=== PATIENT | female | born 1985 | race Caucasian/White ===

== ENCOUNTER 2017-09-15 22:55 | Inpatient (IN) | payer BC ==
[2017-09-15 23:51] LABS: BASOPHIL 0.7 % (0-2.0); EOSINOPHIL 0.6 % (0-4.5); MCH 30.3 pg (25.7-33.7); MCHC 33.9 g/dl (32.0-36.0); MEAN CELL VOLUME 89.3 fl (80-96); MEAN PLT VOLUME 10.5 fl (7.5-11.1); NEUTROPHILS 79.7 % (42.8-82.8); PLATELET COUNT 211 K/MM3 (134-434); WHITE BLOOD COUNT 14.4 K/mm3 (4.0-10.0)
[2017-09-15 23:55] VITALS: BMI 27.8
[2017-09-16 00:13] LABS: INR 0.93 (0.82-1.09); PROTHROMBIN TIME (PATIENT) 10.5 SEC (9.98-11.88)
[2017-09-16 00:15] LABS: ACTIVATED PTT 26.1 SECONDS (26.9-34.4)
[2017-09-16 00:19] LABS: ANION GAP 12 (8-16); CALCIUM 9.5 mg/dL (8.5-10.1); CO2 22 mmol/L (21-32); CREATININE 0.8 mg/dL (0.55-1.02); GLUCOSE,RANDOM 116 mg/dL (74-106)
--- NOTE | 2017-09-16 00:25 | HP ---
Past Medical History - Admission Chief Complaint: labor History of Present Illness: 32 yo @ 39 5/7 wks by first trimester ultrasound, EDC 09/18/17 complicated by: 1. Transfer of care from Dr. Reyes 2. History of subchorionic hematoma, which resolved Patient presents with chief complaint of contractions, which started Friday night. She was checked in the office earlier this morning and was found to be 3- 4 cm, salina irregularly. The contractions increased in intensity and frequency and she presented to L&D where she was found to be 5 cm dilated. She endorses movement, denies leakage of fluid or vaginal bleeding. History Source: Patient Limitations to Obtaining History: No Limitations - Past Medical History Cardiovascular: No: HTN Pulmonary: No: Asthma Renal/: Yes: Renal Calculi (2002) ...: 1 ...Para: 0 ...Term: 0 ...: 0 ...Spon : 0 ...Induced : 0 ...Multiple Gestation: 0 ...LMP: 12/06/16 ... Weeks Gestation by Dates: 40.3 ...EDC by Dates: 09/12/17 ...EDC by Sono: 09/18/17 - Past Surgical History Hx Myomectomy: No Hx Transabdominal Cerclage: No Additional Surgical History: Tonsillectomy age 3 - Smoking History Smoking history: Former smoker Have you smoked in the past 12 months: No - Alcohol/Substance Use Hx Alcohol Use: No History of Substance Use: reports: None - Social History Usual Living Arrangement: Yes: With Spouse History of Recent Travel: No Home Medications - Allergies Allergies/Adverse Reactions: Allergies Allergy/AdvReac Type Severity Reaction Status Date / Time No Known Allergies Allergy Verified 09/15/17 23:44 - Home Medications Home Medications: Ambulatory Orders Vit/Iron Fumarate/FA [ Tablet] 1 tablet PO DAILY 09/15/17 Family Disease History - Family Disease History Family History: Denies Review of Systems - Review of Systems Constitutional: reports: No Symptoms Eyes: reports: No Symptoms Neck: reports: No Symptoms Cardiovascular: reports: No Symptoms Respiratory: reports: No Symptoms Gastrointestinal: reports: No Symptoms Genitourinary: reports: No Symptoms Musculoskeletal: reports: No Symptoms Neurological: reports: No Symptoms Endocrine: reports: No Symptoms Hematology/Lymphatic: reports: No Symptoms Physical Exam - Maternity Vital Signs: Vital Signs Temperature 98.0 F 09/15/17 23:20 Pulse Rate 67 09/15/17 23:20 Respiratory Rate 20 09/15/17 23:20 Blood Pressure 129/73 09/15/17 23:20 O2 Sat by Pulse Oximetry (%) Constitutional: Yes: Well Nourished, No Distress, Calm Cardiovascular: Yes: Regular Rate and Rhythm Lungs: Clear to auscultation - Abdominal Exam/OB Fundal Height: 40 Number of Fetuses: Single Contractions: Yes Regularity: Regular Intensity: Mod/Strong Monitor Mode: External Category: I Accelerations: Non-Uniform Decelerations: None - Vaginal Exam/OB Vaginal Bleediing: No Dilatation (cm): 5 Amniotic Membrane Status: Bulging - Physical Exam Psychiatric: Yes: Alert, Oriented - Labs Lab Results: CBC, BMP 09/15/17 23:40 Hemorrhage Risk Assessment - Risk Factors Medium Risk Factors: Yes: None High Risk Factors: Yes: None Risk Score: 1 Risk Level: Medium Risk Assessment/Plan 32 yo in active labor 1. Admit to L&D 2. Consents reviewed and signed 3. Admission labs collected and reviewed 4. GBS negative 5. Category I FHT 6. Will offer pain control at patient request 7. Will proceed with expectant management, anticipate vaginal delivery
[2017-09-16 00:37] LABS: HIV 1 & 2 AB NEGATIVE; HIV 1 AGp24 NEGATIVE
[2017-09-16] MEDS ORDERED: FENTANYL/BUPIVACAINE/NS/PF - PCEA - 50 ML DISP.SYRIN EP SCH (00:45)
--- NOTE | 2017-09-16 01:13 | PN ---
Ante-Partal Exam - Subjective Subjective: Reports mild improvement in pain Vital Signs: Vital Signs Temperature 98.0 F 09/15/17 23:20 Pulse Rate 67 09/15/17 23:20 Respiratory Rate 20 09/15/17 23:20 Blood Pressure 129/73 09/15/17 23:20 O2 Sat by Pulse Oximetry (%) Bleeding: No Headache: No Visual changes: No Right upper quadrant pain: No - Contractions Contractions: Yes Regularity: Regular Intensity: Mod/Strong Monitor Mode: External - Exam during Labor Heart Rate: 130 Variability: Moderate Category: II Monitor Accelerations: Present Monitor Decelerations: Variable Exam: Vaginal Dilatation (cm): 6 Effacement (%): 100 Amniotic Membrane Status: Ruptured Amniotic Fluid: Clear Presentation: Vertex Station: 0 - Intrapartum Hemorrhage Risk Medium Risk Factors: None High Risk Factors: None Risk Score: 0 Risk Level: Low Risk - Assessment/Plan Assessment/Plan: 32 yo active labor 1. AROM performed, clear fluid 2. GBS neg 3. Patient with minimal relief s/p epidural, will contact anethesia 4. Variable deceleration after AROM, now category I FHT, will monitor
--- NOTE | 2017-09-16 01:46 | PN ---
Ante-Partal Exam - Subjective Subjective: reports continued left sided pain Vital Signs: Vital Signs Temperature 99.0 F 09/16/17 01:00 Pulse Rate 69 09/16/17 01:05 Respiratory Rate 20 09/16/17 01:05 Blood Pressure 103/54 09/16/17 01:05 O2 Sat by Pulse Oximetry (%) 97 09/16/17 00:55 Bleeding: No Headache: No Visual changes: No Right upper quadrant pain: No - Contractions Contractions: Yes Regularity: Regular Intensity: Strong Monitor Mode: External - Exam during Labor Variability: Moderate Category: I Monitor Accelerations: Present Monitor Decelerations: None Exam: Vaginal Dilatation (cm): 8 Effacement (%): 100 Amniotic Membrane Status: Ruptured Station: +1 - Intrapartum Hemorrhage Risk Medium Risk Factors: None High Risk Factors: None Risk Score: 0 Risk Level: Low Risk - Assessment/Plan Assessment/Plan: 32 yo active labor 1. Good cervical change 2. Category I FHT 3. Inadequate pain relief s/p reinsertion of epidural, anesthesia at bedside 4. GBS negative 5. Will continue expectant management, anticipate vaginal delivery
--- NOTE | 2017-09-16 05:40 | PN ---
Delivery - Delivery Vaginal Delivery: No Problems Type of Anesthesia: Epidural Episiotomy/Laceration: 2nd degree EBL (cc): 300 Delivery, Single - Stages of Labor Date 1st Stage Initiatied: 09/15/17 Time 1st Stage Initiated: 20:00 Date 2nd Stage Initiated: 09/16/17 Time 2nd Stage Initiated: 03:10 Date of Delivery: 09/16/17 Time of Delivery: 05:14 Date Placenta Delivered: 09/16/17 Time Placenta Delivered: 05:30 Placenta: Yes: Spontaneous - Condition of Gender: Female Position: OA Total Hours ROM (Hrs/Mins): 4 hours 32 minutes - 5 Minutes Total Score: 9 1 Minute Total Score: 9 - Feeding Plan Initial Plan: Exclusive throughout hospitalization Remarks - Remarks Remarks: Patient progressed to fully dilated and at 0514 via delivered a viable female infant in direct OA position, APGARs 9,9. Weight and length unknown at this time. Head delivered spontaneously, nuchal cord noted and reduced. Compound R had noted, shoulders and body followed without difficulty. Infant with spontaneous cry and placed on mother's abdomen. Nose and mouth was bulb suctioned. Cord was clamped and cut. Perineum and vagina examined, a second degree vaginal laceration was noted and repaired in the usual fashion. Rectal exam revealed no sutures in rectum. Placenta was delivered spontaneously and intact. 20 units of pitocin in 1 L IVF was given. All counts correct x 2. Mother and infant stable in LDR. EBL 300cc.
[2017-09-16] MEDS ORDERED: IBUPROFEN 600 MG TABLET (FP) PO PRN (05:41)
[2017-09-16] MEDS ORDERED: BENZOCAINE 20% 57 GM BOTTLE TP PRN (05:41)
[2017-09-16] MEDS ORDERED: METHYLERGONOVINE MALEATE 0.2 MG/1 ML AMP IM PRN (05:41)
[2017-09-16] MEDS ORDERED: ACETAMINOPHEN 325 MG TABLET (FP) PO PRN (05:41)
[2017-09-16] MEDS ORDERED: oxyCODONE HCL 5 MG TABLET PO PRN (05:41)
[2017-09-16] MEDS ORDERED: WITCH HAZEL 50% (TUCKS) 40 PAD/JAR PAD TP PRN (05:41)
[2017-09-16] MEDS ORDERED: BENZOCAINE 28 GM HEMORRHOIDAL OINTMENT TP PRN (05:41)
[2017-09-16] MEDS ORDERED: BISACODYL 10 MG SUPP.RECT RC PRN (05:41)
[2017-09-16] MEDS ORDERED: OXYTOCIN 20 UNITS in 0.9% NS 20 UNIT/1,000 ML INFUS.BAG IV SCH (05:45)
[2017-09-16] MEDS ORDERED: TUBERCULIN PPD 5 TU/0.1ML SYRINGE (IN PATIENT USE ONLY) ID ONE (07:00)
[2017-09-17 08:50] LABS: BASOPHIL 0.7 % (0-2.0); EOSINOPHIL 1.4 % (0-4.5); MCH 29.9 pg (25.7-33.7); MCHC 32.8 g/dl (32.0-36.0); MEAN CELL VOLUME 90.9 fl (80-96); MEAN PLT VOLUME 9.8 fl (7.5-11.1); NEUTROPHILS 78.8 % (42.8-82.8); PLATELET COUNT 180 K/MM3 (134-434); RDW 14.6 % (11.6-15.6); WHITE BLOOD COUNT 15.8 K/mm3 (4.0-10.0)
--- NOTE | 2017-09-17 15:49 | DS ---
Physical Exam-INTERNAL COMMUNICATIONS WRITER Vital Signs: Vital Signs Temperature 98.6 F 09/17/17 08:48 Pulse Rate 65 09/17/17 08:48 Respiratory Rate 20 09/17/17 08:48 Blood Pressure 109/64 09/17/17 08:48 O2 Sat by Pulse Oximetry (%) 97 09/16/17 00:55 Constitutional: Yes: Well Nourished, No Distress, Calm Eyes: Yes: WNL, Conjunctiva Clear, EOM Intact HENT: Yes: WNL, Atraumatic, Normocephalic Neck: Yes: WNL, Supple, Trachea Midline Cardiovascular: Yes: WNL, Regular Rate and Rhythm Respiratory: Yes: WNL, Regular, CTA Bilaterally Gastrointestinal: Yes: WNL, Normal Bowel Sounds, Soft ...Rectal Exam: Yes: Deferred Renal/: Yes: WNL Internal Exam Deferred: Yes ....Post : Yes: Uterus firm, Uterus non-tender, Slight lochia rubra Breast(s): Yes: WNL Musculoskeletal: Yes: WNL Extremities: Yes: WNL Edema: Yes Edema: LLE: Trace, RLE: Trace Integumentary: Yes: WNL Neurological: Yes: WNL, Alert, Oriented ...Motor Strength: WNL Psychiatric: Yes: WNL, Alert, Oriented Labs: CBC, BMP 09/17/17 08:00 09/15/17 23:40 Delivery - Delivery Vaginal Delivery: No Problems Type of Anesthesia: Epidural Episiotomy/Laceration: 2nd degree EBL (cc): 300 Delivery, Single - Stages of Labor Date 1st Stage Initiatied: 09/15/17 Time 1st Stage Initiated: 20:00 Date 2nd Stage Initiated: 09/16/17 Time 2nd Stage Initiated: 03:10 Date of Delivery: 09/16/17 Time of Delivery: 05:14 Time Placenta Delivered: 05:30 Placenta: Yes: Spontaneous - 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 You may walk unlimited latisha of and climb stairs. You may resume driving the car when you feel safe and comfortable behind the wheel. No sexual activity as instructed. Wound care If you have a bandage, leave it on, and keep dry for 48-72 hours. After that time discard the outer bandage. If they are tapes on the skin under the out of bandage leave them in place. They will peel off in the next 7 to 10 days. Do Not Peel them off. You may shower the day after surgery. If there are tapes present on the skin, you may shower over them. Diet There are no dietary restrictions. Eat healthy, high-fiber foods. Drink 6 to 8 glasses of liquid each day. This will assist in keeping your bowels are regular. Pain management You may take Tylenol or acetaminophen or Ibuprofen (for example, Motrin, Advil etc.) from my pain prescription medication is ordered should be taken as prescribed for moderate to severe pain. Call MD for any of the following: Severe pain not relieved by medication Fever of 101 or higher Excessive bleeding or drainage on dressing Inability to urinate Follow-up in office in 4 wks Referrals: Amaris Hirsch MD [Staff Physician] - Disposition: HOME - Home Medications Comprehensive Discharge Medication List: Ambulatory Orders Vit/Iron Fumarate/FA [ Tablet] 1 tablet PO DAILY 09/15/17
[2017-09-17] MEDS ORDERED: SENNOSIDES/DOCUSATE COMBO (SENNA PLUS) TABLET (UD) PO PRN (22:00)
--- NOTE | 2017-09-18 00:52 | PN ---
Post Progress Note - Subjective Subjective: Patient without acute complaints. Reports tolerating oral intake without nausea or vomiting. Ambulating without dizziness. Denies fevers or chills. Pain well controlled with oral pain medication. without difficulty. Passing flatus. Post Day: 2 Type of Delivery: Vital Signs: Vital Signs Temperature 98.9 F 09/17/17 22:00 Pulse Rate 84 09/17/17 22:00 Respiratory Rate 20 09/17/17 22:00 Blood Pressure 121/72 09/17/17 22:00 O2 Sat by Pulse Oximetry (%) 97 09/16/17 00:55 Breast Exam: Yes: Engorged Uterus: Yes: Fundus Firm, Fundus below umbilicus Abdomen/GI: Yes: Abdomen soft, Passing flatus, Tolerating PO. No: Tender Lochia: Yes: Serosa Extremities: Yes: Calves non-tender, Edema (trace) Perineum: Yes: Laceration Activity: Ambulating - Labs Labs: CBC WBC 15.8 K/mm3 (4.0-10.0) H 09/17/17 08:00 RBC 3.56 M/mm3 (3.60-5.2) L 09/17/17 08:00 Hgb 10.6 GM/dL (10.7-15.3) L D 09/17/17 08:00 Hct 32.3 % (32.4-45.2) L 09/17/17 08:00 MCV 90.9 fl (80-96) 09/17/17 08:00 MCH 29.9 pg (25.7-33.7) 09/17/17 08:00 MCHC 32.8 g/dl (32.0-36.0) 09/17/17 08:00 RDW 14.6 % (11.6-15.6) 09/17/17 08:00 Plt Count 180 K/MM3 (134-434) 09/17/17 08:00 MPV 9.8 fl (7.5-11.1) 09/17/17 08:00 Neutrophils % 78.8 % (42.8-82.8) 09/17/17 08:00 Lymphocytes % 12.9 % (8-40) 09/17/17 08:00 Monocytes % 6.2 % (3.8-10.2) 09/17/17 08:00 Eosinophils % 1.4 % (0-4.5) D 09/17/17 08:00 Basophils % 0.7 % (0-2.0) 09/17/17 08:00 Assessment/Plan 32 yo PPD #2 s/p , afebrile, vital signs stable, doing well 1. Patient stable for discharge home today. 2. Patient encouraged to contact MD for: - Severe pain not controlled by oral pain medication - Fevers or chills - Nausea or vomiting, intolerance of oral intake 3. Patient to follow up in office in 4-6 weeks for visit
[2017-09-18 08:04] VITALS: BP 124/81; PULSE 68; TEMP 98.3
== END 2017-09-18 12:30 | disposition home or self-care (01) | DRG 775 ==
LOC: JDEL 22:55 → JLDR 23:20 → J3W 09-16 08:22
PROVIDERS: ADMIT Obstetrics & Gynecology; ATTEND Obstetrics & Gynecology
PROC: 10E0XZZ Delivery of Products of Conception, External Approach (ICD-10-PCS; principal; 2017-09-16)
PROC: 0KQM0ZZ Repair Perineum Muscle, Open Approach (ICD-10-PCS; 2017-09-16)
PROC: 0W8NXZZ Division of Female Perineum, External Approach (ICD-10-PCS; 2017-09-16)
DX: O70.1 Second degree perineal laceration during delivery (principal); Z3A.39 39 weeks gestation of pregnancy; Z37.0 Single live birth
CPT/HCPCS: 36415; 59409; 80048; 85025; 85610; 85730; 86593; 86850; 86900; 86901; 87389